=== PATIENT | male | born 1930 | race Caucasian/White ===

== ENCOUNTER 2022-07-07 16:04 | Emergency (ER) | payer BC ==
[~2022-07-07] VITALS: Ht 165.1 cm; Wt 63.5 kg
--- NOTE | 2022-07-07 16:10 | NUR ---
BIB [facility] from [facility] facility. Per EMT facility staff reported pt is "more confused than usual". Facility info: [facility] #
[2022-07-07 16:37] LABS: HEMATOCRIT 40.1 % (36.7-47.1); MEAN CORPUSCULAR HEMOGLOBIN 30.3 uug (23.8-33.4); MEAN CORPUSCULAR VOLUME 91.4 fL (73.0-96.2); PLATELET COUNT (AUTO) 284 K/uL (152-348)
[2022-07-07 16:48] LABS: CARBON DIOXIDE 27 mmol/L (21-32); CHLORIDE 104 mmol/L (98-107); CREATININE 0.9 mg/dL (0.6-1.3); GLUCOSE 119 mg/dL (74-106); POTASSIUM 3.9 mmol/L (3.5-5.1); UREA NITROGEN, BLOOD 16 mg/dL (7-18)
[2022-07-07 16:56] LABS: ALANINE AMINOTRANSFERASE 17 U/L (16-63); ALKALINE PHOSPHATASE 87 U/L (50-136); ASPARTATE AMINOTRANSFERASE 11 U/L (15-37); BILIRUBIN,DIRECT 0.1 mg/dL (0.0-0.2); BILIRUBIN,TOTAL 0.4 mg/dL (0.2-1.0); TOTAL PROTEIN, SERUM 7.2 g/dL (6.4-8.2)
[2022-07-07 17:01] LABS: THYROID STIMULATING HORMONE 0.907 mIU/mL (0.358-3.740)
[2022-07-07 18:14] LABS: *BILIRUBIN,URIN NEGATIVE (NEGATIVE); *BLOOD, URINE 2+ (NEGATIVE); *CLARITY,URINE TURBID (CLEAR); *COLOR,URINE YELLOW (YELLOW); *KETONES,URINE NEGATIVE (NEGATIVE); *UROBILINOGEN,URINE 0.2 E.U./dl (NORMAL); LEUKOCYTE ESTERASE ,URINE 3+ (NEGATIVE); NITRITE, URINE NEGATIVE (NEGATIVE); UGLUCOSE NEGATIVE (NEGATIVE)
[2022-07-07] MEDS ORDERED: CEPH500T PO (18:17)
[2022-07-07] MEDS ORDERED: CEFTRIAXONE 1 G VIAL IM ONE (18:30)
--- NOTE | 2022-07-07 18:43 | NUR ---
Called [facility] for transport back to [facility], ETA 2230.
[2022-07-07] MEDS ORDERED: CEFTRIAXONE 1 G VIAL ONE (18:53)
--- NOTE | 2022-07-07 19:30 | NUR ---
[facility] [place] [facility]: [address] [place] [address]
[2022-07-08 00:22] LABS: BACTERIA,URINE MANY /HPF (NONE SEEN); RBC,URINE 50-80 /HPF (0-3); SQUAMOUS EPITHELIAL CELL,UR MODERATE /HPF (NONE SEEN); WBC,URINE TNTC /HPF (0-3)
== END 2022-07-08 07:14 ==
LOC: ER 16:04
DX: N39.0 Urinary tract infection, site not specified (principal); G93.40 Encephalopathy, unspecified; G30.9 Alzheimer's disease, unspecified; F02.80 Dementia in other diseases classified elsewhere, unspecified severity, without behavioral disturbance, psychotic disturbance, mood disturbance, and anxiety; R94.31 Abnormal electrocardiogram [ECG] [EKG]
CPT/HCPCS: 99285; 96365; 70450; 71045; 80076; 80048; 81001; 84443; 85025; 84484; 36415; 93005; 87040; J0696; A4663; C1758